=== PATIENT | female | born 1955 | race Caucasian/White ===

== ENCOUNTER 2016-08-12 23:22 | Emergency (ER) | payer OTHER ==
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
[~2016-08-12 23:22] MED LIST: ALBUTEROL20 ml; FLEXERIL; HYDROCODON-ACE1 EAC9; LIPITOR; LYRICA75 MG; MOTRIN600 MG; NEURONTIN300 MG; PHENERGAN25 MG; PRILOSEC; REQUIP0.25 MG; SPIRIVA RESPIMAT4 G1; SYMBICORT; TOPAMAX; VITAMIN D22000 UNIT; ZYRTEC
[2016-11-11] MEDS ORDERED: LYRICA100 MG PO (11:42)
== END 2016-08-13 00:53 | disposition home or self-care (01) ==
LOC: SED 23:22
DX: S93.421A Sprain of deltoid ligament of right ankle, initial encounter (principal); S46.912A Strain of unspecified muscle, fascia and tendon at shoulder and upper arm level, left arm, initial encounter; S80.01XA Contusion of right knee, initial encounter; J44.9 Chronic obstructive pulmonary disease, unspecified; I10 Essential (primary) hypertension; E66.9 Obesity, unspecified; F32.9 Major depressive disorder, single episode, unspecified; F41.9 Anxiety disorder, unspecified; Z87.891 Personal history of nicotine dependence; V43.52XA Car driver injured in collision with other type car in traffic accident, initial encounter
CPT/HCPCS: 29530; 73030; 73060; 73562; 73610; 99284